=== PATIENT | female | born 1980 | race Caucasian/White ===

== ENCOUNTER 2021-02-16 12:53 | Emergency (ER) | payer BC, OTHER ==
[~2021-02-16] VITALS: Ht 167.6 cm; Wt 81.8 kg
[2021-02-16 13:03] VITALS: TEMP 98.2
[2021-02-16] MEDS ORDERED: DESYREL 100MG100 MG PO (13:13)
[2021-02-16] MEDS ORDERED: MAXZIDE 50 MG-71 TAB PO (13:14)
[2021-02-16] MEDS ORDERED: WELLBUTRIN 100100 MG PO (13:14)
[2021-02-16] MEDS ORDERED: ONE-A-DAY ESSE1 EACH PO (13:15)
[2021-02-16] MEDS ORDERED: CELEXA40 MG PO (13:15)
[2021-02-16] MEDS ORDERED: ZYRTEC 10MG10 MG PO (13:16)
[2021-02-16] MEDS ORDERED: MOBIC15 MG PO (13:16)
[2021-02-16] MEDS ORDERED: FIORICET 325 MG1 TA1 PO (14:42)
[2021-02-16 14:58] VITALS: BP 133/71; PULSE 74
[2021-07-29] MEDS ORDERED: WELLBUTRIN SR100 M1 (12:44)
[2021-07-29] MEDS ORDERED: LAMICTAL XR25 MG PO (12:44)
[2021-07-29] MEDS ORDERED: FIORICET 325 MG1 TA1 PO (12:46)
== END 2021-02-16 15:05 | disposition home or self-care (01) ==
LOC: COL.ER 12:53
DX: R51.9 Headache, unspecified (principal); I10 Essential (primary) hypertension
CPT/HCPCS: J1200; J1885; J2765; J7030

== ENCOUNTER 2021-03-24 11:47 | Emergency (ER) | payer BC, OTHER ==
[~2021-03-24] VITALS: Ht 167.6 cm; Wt 79.5 kg
[~2021-03-24 11:47] MED LIST: CELEXA40 MG PO; DESYREL 100MG100 MG PO; FIORICET 325 MG1 TA1 PO; MAXZIDE 50 MG-71 TAB PO; MOBIC15 MG PO; ONE-A-DAY ESSE1 EACH PO; WELLBUTRIN 100100 MG PO; ZYRTEC 10MG10 MG PO
[2021-03-24 13:10] LABS: BASO % 0.4 % (0.0-2.0); EOS # 0.1 (0.0-0.7); EOS % 1.3 % (0-4.0); GRAN # 3.7 (1.4-6.5); GRAN % 54.2 % (42.2-75.2); HEMOGLOBIN 16.4 g/dl (12.5-16.0); LYMPH # 2.6 (1.2-3.4); MEAN CELL VOLUME 89 fl (80.0-100.0); MEAN CORPUSCULAR HEMOGLOBIN 31 pg (27.0-31.0); MEAN CORPUSCULAR HGB CONC 35 g/dl (33.0-37.0); MEAN PLATELET VOLUME 9.9 fl (7.4-10.4); MONO # 0.4 (0.1-0.6); MONO % 5.8 % (1.7-9.3); PLATELET COUNT 300 K/mm3 (130-400); RED BLOOD COUNT 5.27 M/mm3 (4.10-5.30)
[2021-03-24 13:53] LABS: ALANINE AMINOTRANSFERASE 25 U/L (4-34); ALBUMIN 4.9 gm/dL (3.5-5.0); ALKALINE PHOSPHATASE 62 U/L (50-136); ANION GAP 12 mmol/L (7-16); AST,SGOT 23 U/L (15-37); BILIRUBIN,TOTAL 0.6 mg/dL (0.0-1.0); BLOOD UREA NITROGEN 11 mg/dL (7-17); CALCIUM 10.3 mg/dL (8.4-10.2); CARBON DIOXIDE 23 mmol/L (22-30); CHLORIDE 102 mmol/L (98-107); CREATININE, serum 0.74 (0.52-1.25); GLUCOSE 105 mg/dL (74-106); LIPASE 158 U/L (23-300); POTASSIUM 3.9 mmol/L (3.4-5.0); SODIUM 137 mmol/L (137-145); TOTAL PROTEIN 8.6 gm/dL (6.4-8.2)
[2021-03-24 14:03] LABS: C-REACTIVE PROTEIN < 0.5 mg/dL (0.0-0.9)
[2021-03-24 15:04] LABS: COLLECTION METHOD CLEAN CATCH
[2021-03-24 15:46] LABS: MUCOUS Present /lpf; PH 6 (5-8); SQUAMOUS EPITHELIAL 0-2 /hpf; URINE APPEARANCE Clear; URINE BACTERIA None Seen /hpf; URINE BILIRUBIN Negative (NEGATIVE); URINE BLOOD Negative (NEGATIVE); URINE COLOR Yellow; URINE GLUCOSE Negative (NEGATIVE); URINE KETONE Negative (NEGATIVE); URINE LEUKOCYTE ESTERASE Negative (NEGATIVE); URINE NITRATE Negative (NEGATIVE); URINE PROTEIN(semi-quant) Negative (NEGATIVE); URINE RBC 0-2 /hpf; URINE UROBILINOGEN Negative (NEGATIVE)
[2021-03-24] MEDS ORDERED: ZOFRAN ODT4 MG PO (16:33)
[2021-03-24 16:55] VITALS: BP 114/67; PULSE 58; TEMP 97.8
[2021-07-29] MEDS ORDERED: LAMICTAL XR25 MG PO (12:44)
[2021-07-29] MEDS ORDERED: WELLBUTRIN SR100 M1 (12:44)
[2021-07-29] MEDS ORDERED: FIORICET 325 MG1 TA1 PO (12:46)
== END 2021-03-24 16:50 | disposition home or self-care (01) ==
LOC: COL.ER 11:47
PROVIDERS: Nurse Practitioner
DX: R10.13 Epigastric pain (principal); R51.9 Headache, unspecified; R11.2 Nausea with vomiting, unspecified; Z20.822 Contact with and (suspected) exposure to COVID-19; Z98.1 Arthrodesis status; Z90.49 Acquired absence of other specified parts of digestive tract
CPT/HCPCS: J1200; J1885; J2405; J2765; J7030

== ENCOUNTER → 2021-06-14 | Outpatient (CLI) | payer BC, OTHER ==
[~2021-06-14] MED LIST changes: +LAMICTAL XR25 MG PO; +PRIL40 PO; +WELLBUTRIN SR100 M1; +WELLBUTRIN XL300 M1 PO; +XANAX 0.5MG0.5 MG PO; +ZOFRAN ODT4 MG PO
== END ==
LOC: COL.RAD 14:30
DX: R51.9 Headache, unspecified (principal)
CPT/HCPCS: Q9967

== ENCOUNTER → 2021-06-27 | Outpatient (CLI) | payer BC, OTHER | LOC: COL.RAD 14:01 | DX: M25.551 Pain in right hip (principal); M54.5 Low back pain | CPT/HCPCS: G0260; J3301 ==

== ENCOUNTER 2021-07-31 12:48 | Outpatient (CLI) | payer BC ==
[~2021-07-31] VITALS: Ht 167.6 cm; Wt 84.3 kg
[~2021-07-31 12:48] MED LIST changes: -PRIL40 PO; -WELLBUTRIN XL300 M1 PO; -XANAX 0.5MG0.5 MG PO
[2021-07-31] MEDS ORDERED: XANAX 0.5MG0.5 MG PO (12:59)
[2021-07-31] MEDS ORDERED: WELLBUTRIN XL300 M1 PO (13:01)
[2021-07-31 13:04] VITALS: BP 135/91; PULSE 76; TEMP 98.4
[2021-07-31] MEDS ORDERED: PRIL40 PO (13:04)
[2021-07-31 13:50] VITALS: BP 126/65; PULSE 59
[2021-07-31 14:15] VITALS: BP 126/82; PULSE 60
[2021-07-31 14:45] VITALS: BP 122/69; PULSE 56
== END 2021-07-31 15:00 | disposition home or self-care (01) ==
LOC: COL.RAD 12:48
DX: M54.50 Low back pain, unspecified (principal); Z98.1 Arthrodesis status
CPT/HCPCS: Q9965

== ENCOUNTER → 2023-01-21 | Outpatient (CLI) | payer BC, OTHER ==
[~2023-01-21] MED LIST changes: +ADIPEX-P37.5 MG PO; +AIMOVIG AU70 MG/1 M1 SQ; +CENTRUM1 TA1 PO; +CYMBALTA 60MG60 MG PO; +DYAZIDE 25 MG-31 CAP PO; +IMITREX 6M6 MG/0.5 M SQ; +LAMICTAL150 MG PO; +LIORESAL 1010 MG/TAB PO; +LYRICA 75MG CAP75 MG PO; +PRIL40 PO; +TROKEND50 PO; +WELLBUTRIN XL150 MG PO; +WELLBUTRIN XL300 M1 PO; +XANAX 0.5MG0.5 MG PO; +ZANAFLEX CAPSULE4 MG PO
== END ==
LOC: MHCPAIN 15:29
DX: M54.81 Occipital neuralgia (principal); M54.2 Cervicalgia
CPT/HCPCS: G0463; J1040

== ENCOUNTER 2023-11-16 17:30 | Emergency (ER) | payer BC, OTHER ==
[~2023-11-16] VITALS: Ht 167.6 cm; Wt 79.5 kg
[2023-11-16 17:57] VITALS: TEMP 98.3
[2023-11-16] MEDS ORDERED: Morphine 10 MG/ML VIAL IM ONE (18:15)
[2023-11-16] MEDS ORDERED: AMOXICILLIN 50500 MG PO (18:26)
[2023-11-16] MEDS ORDERED: PERCOCET 325 MG1 TA2 PO (18:26)
[2023-11-16] MEDS ORDERED: Home oxyCODONE/Acetaminophen 5/325 MG #4 TAB/PACK PO ONE (18:30)
[2023-11-16] MEDS ORDERED: cefTRIAXone 1 G,Lidocaine PF 1% 2.1 ML IM ONE (18:30)
[2023-11-16 18:51] VITALS: BP 145/82; PULSE 64
== END 2023-11-16 18:51 | disposition home or self-care (01) ==
LOC: COL.ER 17:30
DX: K08.89 Other specified disorders of teeth and supporting structures (principal); Z87.891 Personal history of nicotine dependence
CPT/HCPCS: J0696; J2270